=== PATIENT | female | born 1995 | race African-American/Black ===

== ENCOUNTER 2025-03-05 15:24 | Outpatient (CLI) | payer OTHER, SELFPAY ==
--- NOTE | ~2025-03-05 | XR_ITS ---
EXAM: XR knee LT 3V DATE: 03/05/2025 15:43 HISTORY: Pain in left knee . COMPARISON: None available. FINDINGS: Normal mineralization. No fracture or dislocation. No lytic or blastic lesion. Mild medial joint space narrowing and minimal tricompartmental compartment osteophytosis. No erosion or perioste al change. Soft tissues within normal limits. Small volume joint fluid. IMPRESSION: No acute osseous finding in the left knee. Small left knee joint effusion. Reviewed, dictated and finalized at location K. IMPRESSION: No acute osseous finding in the left knee. Small left knee joint ef fusion.
== END 2025-03-05 15:25 | disposition home or self-care (01) ==
LOC: MICIMG 15:31
PROVIDERS: PCP Internal Medicine; Visit Provider Internal Medicine
DX: M25.462 Effusion, left knee (principal)
CPT/HCPCS: 73562